=== PATIENT | female | born 1960 | race Caucasian/White ===

== ENCOUNTER 2020-07-16 09:04 | Outpatient (CLI) | payer BC, SELFPAY ==
--- NOTE | 2020-07-16 09:09 | ECHO_ITS ---
Patient Info Name: Aliya Bruner Age: 60 years : 1960 Gender: Female Ht: 62 in Wt: 208 lbs BSA: 2.08 m2 HR: 55 bpm BP: 187 / 89 mmHg Heart Rhythm: Bradycardia Technical Quality: Good Exam Date: 07/16/2020 9:31 AM Exam Location: [facility] Patient Status: Outpatient Admit Date: 07/16/2020 Staff Ordering Physician: Sharda Pollack NP Air Tool Operator: Damir Meyer RDCS Attending Provider: Sharda Pollack NP Referring Physician: Jaki MICHAEL; Exam Type: CA echo doppler color flow Study Info Indications R60.0 - Localized edema Complete two-dimensional, color flow and Doppler transthoracic echocardiogram is performed. History/Risk Factors Localized edema, HTN. Summary 1. Complete two-dimensional, color flow and Doppler transthoracic echocardiogram is performed. 2. Left ventricular chamber dimension is normal. 3. Left ventricular systolic function is normal, estimated at 60-65%. 4. The left ventricular diastolic function is abnormal. 5. E/e' 10 is mildly elevated. 6. Left atrial chamber dimension is mildly enlarged. 7. No pulmonary hypertension, estimated pulmonary arterial systolic pressure is 27 mmHg. Left Ventricle E/e' 10 is mildly elevated. Left ventricular chamber dimension is normal. Left ventricular systolic function is normal, estimated at 60-65%. The left ventricular diastolic function is abnormal. Right Ventricle Right ventricular chamber dimension is normal. Right ventricular systolic function is normal. Left Atria Left atrial chamber dimension is mildly enlarged. Right Atria Right atrial chamber dimension is normal. Aortic Valve The aortic valve is probable trileaflet. There is no aortic valve stenosis. There is no aortic valve regurgitation. Pulmonic Valve There is no pulmonic regurgitation. Mitral Valve There is no mitral valve stenosis. There is no mitral valve regurgitation. Tricuspid Valve There is no tricuspid valve regurgitation. No pulmonary hypertension, estimated pulmonary arterial systolic pressure is 27 mmHg. Pericardium/Pleural There is no pericardial effusion. Inferior Vena Cava Normal inferior vena cava with >50% collapse upon inspiration consistent with normal right atrial pressure, 5 mmHg. Aorta The aortic root size at the sinus of Valsalva is normal. Left Ventricular Outflow Tract Name Value Normal LVOT 2D LVOT Diameter 2.0 cm LVOT Doppler LVOT Peak Gradient 7 mmHg LVOT Mean Gradient 3 mmHg LVOT VTI 30 cm LVOT VTI/AV VTI Ratio 0.7 LVOT Stroke Volume 99 ml LVOT CO 4.9 l/min LVOT CI 2.4 l/min/m2 Mitral Valve Name Value Normal MV Doppler
== END 2020-07-16 09:05 | disposition home or self-care (01) ==
PROVIDERS: PCP Family Medicine; Visit Provider Nurse Practitioner Family
DX: R60.0 Localized edema (principal)
CPT/HCPCS: 93306

== ENCOUNTER → 2021-03-31 03:14 | Outpatient (CLI) | payer BC, SELFPAY ==
[2021-03-31 19:14] LABS: SARS-CoV-2 RNA PCR Negative
== END ==
PROVIDERS: PCP Family Medicine; Visit Provider Family Medicine
DX: Z20.822 Contact with and (suspected) exposure to COVID-19 (principal)
CPT/HCPCS: C9803; U0003; U0005

== ENCOUNTER 2021-04-22 10:09 | Outpatient (CLI) | payer BC, SELFPAY ==
--- NOTE | ~2021-04-22 | CT_ITS ---
EXAMINATION: CT lung screening DATE: 04/22/2021 10:53 INDICATION: Personal history of tobacco dependence, prior smoker with 30 pack year history TECHNIQUE: Computed tomography (CT) of the chest was performed without intravenous contrast. The dose -length product (DLP) was 224.91 mGy-cm. Automated exposure control and iterative reconstruction tech [employer] were employed. COMPARISON: None FINDINGS: There is mild emphysema. No suspicious pulmonary nodules are identified. There is no pleura l effusion or pneumothorax. No pathologically enlarged thoracic lymph nodes are identified. The heart size is normal. There is mild thoracic spondylosis. IMPRESSION: 1. Lung-RADS category 1: Negative. Continue annual screening with noncontrast low-dose chest CT in 12 months. Reviewed, dictated and finalized at location A. IMPRESSION: 1. Lung-RADS category 1: Negative. Continue annual screening with noncontrast l ow-dose chest CT in 12 months.
== END 2021-04-22 10:10 | disposition home or self-care (01) ==
PROVIDERS: PCP Family Medicine; Visit Provider Family Medicine
DX: Z12.2 Encounter for screening for malignant neoplasm of respiratory organs (principal); Z87.891 Personal history of nicotine dependence
CPT/HCPCS: 71271

== ENCOUNTER 2021-06-10 00:13 | Day surgery (SDC) | payer BC, SELFPAY ==
[2021-05-29 12:49] VITALS: BMI 38.0
--- NOTE | 2021-06-09 13:01 | PM.HPGS ---
History of Present Illness History of Present Illness Consent: Risks, benefits, and alternatives have been discussed and questions answered. Patient agrees to proceed with procedure. Chief complaint: neoplasm screening Narrative: Lin Bruner is a 61 year old female referred for colon cancer screening. This is her 1st colonoscopy. Review of Systems Review of Systems: All systems reviewed & are unremarkable except as noted in HPI and below PMFSH Past Medical History Medical History Bilateral primary osteoarthritis of knee Claustrophobia Depression with anxiety Dyslipidemia Hypertension Hypothyroidism Knee effusion, right Left knee DJD Pedal edema Right knee DJD Vitamin D deficiency Surgical History Surgical History Previous section 1993 Family History Family History Father Family history of emphysema Social History Social History Smoking packs per day: 1.5 Smoking cigarettes per day: 30.0 Years smoked: 30 Smoking pack-years: 45.00 Smoking status: Former smoker Smoking end date: 06/27/16 Alcohol intake: current Drinks per week: 3 Substance use: never Substance use type: does not use Living arrangements: with family Additional living arrangements comments: Additional occupation/education comments: [employer] Gender identity (if verbalized by the patient): Female Spiritual care concerns: No Meds Home Medications and Allergies Home Medications Medication Instructions Recorded Confirmed Type amlodipine 10 mg tablet 10 mg PO DAILY #90 tablet 01/05/21 06/10/21 Rx furosemide 40 mg tablet 40 mg PO DAILY #90 tablet 01/13/21 06/10/21 Rx fluoxetine 20 mg capsule 20 mg PO DAILY #90 cap 02/18/21 06/10/21 Rx levothyroxine 150 mcg tablet 150 mcg PO DAILY #90 tablet 03/19/21 06/10/21 Rx lisinopril 20 mg tablet 20 mg PO BID #180 tablet 04/06/21 06/10/21 Rx cholecalciferol (vitamin D3) 1,250 1,250 mcg PO WEEKLY #12 tablet 04/15/21 06/10/21 Rx mcg (50,000 unit) tablet celecoxib 200 mg capsule See Rx Instructions .ROUTE 05/18/21 06/10/21 Rx .COMPLEX #180 cap Allergies Allergy/AdvReac Type Severity Reaction Status Date / Time ciprofloxacin Allergy Unknown Rash Verified 06/10/21 10:01 codeine Allergy Unknown Unknown Verified 06/10/21 10:01 lovastatin Allergy Unknown Swelling Verified 06/10/21 10:01 of Lip/Tongue/Throat sulfamethoxazole Allergy Unknown Rash Verified 06/10/21 10:01 trimethoprim Allergy Unknown Rash Verified 06/10/21 10:01 HYDROCODONE BIT AdvReac Unknown Nausea and Uncoded 06/10/21 10:01 Vomiting Exam Resp: Auscultation: clear to auscultation bilaterally Cardio: Rate: regular rate Rhythm: regular rhythm GI: GI Palp: Yes Soft to palpation and No Tenderness to palpation present (GI) Assessment and Plan Assessment and plan (1) Colon cancer screening: Code(s): Z12.11 - Encounter for screening for malignant neoplasm of colon Status: Acute Assessment and Plan: Colonoscopy with possible biopsy or polypectomy or cautery or injection of substances.
[2021-06-10 10:02] VITALS: BP 186/72; PULSE 77; RESP 18; TEMP 36.9; O2SAT 97
[2021-06-10] MEDS: LACTATED RINGERS 1,000 ML 150 ML IV CONT (10:05)
--- NOTE | 2021-06-10 10:18 | WPDANESEPPF ---
Anes - Initial Pre Proc Eval Procedure: Operation Date: 06/10/21 11:15 Proposed Procedures p Screening Colonoscopy - Remigio Sher MD Date/Time: 06/10/21 10:18 Surgeon: Remigio Sher MD Pre Op Diagnosis: neoplasm screening Patient Data Age: 61 Gender: F Height: 1.57 m Weight: 95.8 kg Last Vital Signs Temp 36.9 C 06/10/21 10:02 Pulse 77 06/10/21 10:02 Resp 18 06/10/21 10:02 BP 186/72 H 06/10/21 10:02 Pulse Ox 97 06/10/21 10:02 Allergies Allergy/AdvReac Type Severity Reaction Status Date / Time ciprofloxacin Allergy Unknown Rash Verified 06/10/21 10:01 codeine Allergy Unknown Unknown Verified 06/10/21 10:01 lovastatin Allergy Unknown Swelling Verified 06/10/21 10:01 of Lip/Tongue/Throat sulfamethoxazole Allergy Unknown Rash Verified 06/10/21 10:01 trimethoprim Allergy Unknown Rash Verified 06/10/21 10:01 HYDROCODONE BIT AdvReac Unknown Nausea and Uncoded 06/10/21 10:01 Vomiting Home Medications Medication Instructions Recorded Confirmed Type amlodipine 10 mg tablet 10 mg PO DAILY #90 tablet 01/05/21 06/10/21 Rx furosemide 40 mg tablet 40 mg PO DAILY #90 tablet 01/13/21 06/10/21 Rx fluoxetine 20 mg capsule 20 mg PO DAILY #90 cap 02/18/21 06/10/21 Rx levothyroxine 150 mcg tablet 150 mcg PO DAILY #90 tablet 03/19/21 06/10/21 Rx lisinopril 20 mg tablet 20 mg PO BID #180 tablet 04/06/21 06/10/21 Rx cholecalciferol (vitamin D3) 1,250 1,250 mcg PO WEEKLY #12 tablet 04/15/21 06/10/21 Rx mcg (50,000 unit) tablet celecoxib 200 mg capsule See Rx Instructions .ROUTE 05/18/21 06/10/21 Rx .COMPLEX #180 cap Patient hx anesthesia problems: none Family hx anesthesia problems: none Results Review: All pre-operative results and documents have been reviewed as part of the pre-operative evaluation. [facility] Past Medical History Medical History Bilateral primary osteoarthritis of knee Claustrophobia Depression with anxiety Dyslipidemia Hypertension Hypothyroidism Knee effusion, right Left knee DJD Pedal edema Right knee DJD Vitamin D deficiency Surgical History Surgical History Previous section 1993 Family History Family History Father Family history of emphysema Social History Social History Smoking packs per day: 1.5 Smoking cigarettes per day: 30.0 Years smoked: 30 Smoking pack-years: 45.00 Smoking status: Former smoker Smoking end date: 06/27/16 Alcohol intake: current Drinks per week: 3 Substance use: never Substance use type: does not use Living arrangements: with family Additional living arrangements comments: Additional occupation/education comments: [employer] Gender identity (if verbalized by the patient): Female Spiritual care concerns: No Anes - Eval Final PreProcedure Day of Procedure 06/10/21 10:18 Patient weight: obese Heart: regular rate and rhythm Lungs: clear to auscultation Airway: Mallampati scale class III Neurological: alert and oriented Last oral intake: >/= 8 hours ASA classification: III Emergent: no Anesthetic plan: proceed Anesthesia type and monitoring: general GIVS and standard monitoring Results Review: All pre-operative results and documents have been reviewed as part of the pre-operative evaluation. Informed Consent: The patient's anesthetic plan and its attendant risks and benefits were discussed with the patient/family/POA. Questions were solicited and answers provided to the satisfaction of the patient/family/POA.
[2021-06-10] MEDS: SIMETHICONE ORAL SUSPENSION 20 MG/0.3 ML 30 ML BOTTLE 0.6 ML IRRIGATION (11:03)
[2021-06-10 11:13] VITALS: BP 114/65; PULSE 60; RESP 22; O2SAT 97
[2021-06-10 11:23] VITALS: BP 130/70; PULSE 62; RESP 20; O2SAT 98
[2021-06-10 11:33] VITALS: BP 137/73; PULSE 60; RESP 18; O2SAT 100
== END 2021-06-10 11:42 | disposition home or self-care (01) ==
PROVIDERS: PCP Family Medicine; Visit Provider Internal Medicine Gastroenterology
PROC: 0DJD8ZZ Inspection of Lower Intestinal Tract, Via Natural or Artificial Opening Endoscopic (ICD-10-PCS; CPT 45378; principal; 2021-06-10 11:15)
DX: Z12.11 Encounter for screening for malignant neoplasm of colon (principal); I10 Essential (primary) hypertension; E78.5 Hyperlipidemia, unspecified; E03.9 Hypothyroidism, unspecified; E55.9 Vitamin D deficiency, unspecified; Z87.891 Personal history of nicotine dependence; M17.0 Bilateral primary osteoarthritis of knee; F40.240 Claustrophobia
CPT/HCPCS: 45378; J2704; J7120

== ENCOUNTER 2021-12-16 09:31 | Outpatient (CLI) | payer BC, SELFPAY ==
[2021-12-16 13:47] LABS: Free T4 Free Thyroxine 2.65 ng/mL (0.78-2.19); Vitamin D 25 Hydroxy 43.8 ng/mL
[2021-12-16 13:59] LABS: Thyroid Stimulating Hormone < 0.015 uIU/mL (0.465-4.680)
[2021-12-19 10:09] LABS: Testosterone Total 30 ng/dL (2-45)
== END 2021-12-16 09:32 | disposition home or self-care (01) ==
PROVIDERS: PCP Family Medicine; Visit Provider Internal Medicine Endocrinology, Diabetes & Metabolism
DX: E03.9 Hypothyroidism, unspecified (principal); E55.9 Vitamin D deficiency, unspecified; L70.9 Acne, unspecified; L68.0 Hirsutism
CPT/HCPCS: 36415; 82306; 84403; 84439; 84443